=== PATIENT | male | born 1960 | race Two or more races ===

== ENCOUNTER 2017-01-20 22:58 | Emergency (ER) | payer BC ==
--- NOTE | 2017-01-21 01:33 | ED ---
HPI Chest Pain - HPI Summary HPI Summary: Pt here w/ h/o 20 minutes of central chest pain around 22:00 tonight. Noticed while sitting and reading - felt like internal gas pressure. No position made this better or worse. Denies jaw pain, arm pain, back pain, SOB, diaphoresis, nausea/vomiting, fatigue during or after episode. Did not try ASA nor GI remedies. H/o acid reflux in the past - did not feel a burning taste in his mouth like usual. Reports pain dissipated after those 20 minutes and has not returned since. No h/o cardiac issues and no consistent h/o GERD sx. Denies recent illness, cough, ab discomfort. Only change tonight was that he ate summer sausage at a work meeting adn doesn't usually eat food like this. Walks a few miles daily and eats healthy in general. Just had a physical < 6 months ago and was told everything looks good. Fam hx: father by [place] in 50's and brother w/ stents in 50's. Pt denies NSAID use, smoking, drinking ETOH, high stress. - History of Current Complaint Chief Complaint: EDAbdPain Time Seen by Provider: 01/21/17 01:06 Hx Obtained From: Patient Pain Intensity: 0 - Allergy/Home Medications Allergies/Adverse Reactions: Allergies Allergy/AdvReac Type Severity Reaction Status Date / Time No Known Allergies Allergy Verified 01/20/17 23:06 PMH/Surg Hx/FS Hx/Imm Hx Previously Healthy: Yes Endocrine/Hematology History: Denies: Hx Anticoagulant Therapy, Hx Blood Disorders, Hx Diabetes, Hx Thyroid Disease Cardiovascular History: Denies: Hx Congenital Heart Disease, Hx Congestive Heart Failure, Hx Coronary Artery Disease Respiratory History: Denies: Hx Asthma, Hx Chronic Obstructive Pulmonary Disease (COPD), Hx Pneumonia, Hx Pulmonary Embolism GI History: Reports: Hx Gall Bladder Disease - h/o gallstones , Hx Gastroesophageal Reflux Disease - occasional heart burn Denies: Hx Gastrointestinal Bleed Infectious Disease History: No Infectious Disease History: Denies: Traveled Outside the [place] in Last 30 Days - Family History Known Family History: Positive: Cardiac Disease - father - mi in 50's () ; brother stents in 50's - Social History Occupation: Employed Full-time Lives: With Family - Alcohol Use: None Hx Substance Use: No Substance Use Type: Reports: None Hx Tobacco Use: No Smoking Status (MU): Never Smoked Tobacco Review of Systems Constitutional: Negative Negative: Fever, Chills, Fatigue Negative: Sore Throat, Ear Ache, Nasal Discharge Positive: Chest Pain - see HPI Respiratory: Negative Negative: Shortness Of Breath, Cough Gastrointestinal: Other - see HPI Negative: Vomiting, Diarrhea, Nausea Negative: dysuria, discharge, frequency, flank pain Musculoskeletal: Negative Skin: Negative Neurological: Negative Psychological: Normal All Other Systems Reviewed And Are Negative: Yes Physical Exam Triage Information Reviewed: Yes Vital Signs On Initial Exam: Initial Vitals Temp Pulse Resp BP Pulse Ox 98.2 F 64 18 151/80 98 01/20/17 23:02 01/20/17 23:02 01/20/17 23:02 01/20/17 23:02 01/20/17 23:02 Vital Signs Reviewed: Yes Appearance: Positive: Well-Appearing, No Pain Distress, Well-Nourished Skin: Positive: Warm, Dry Head/Face: Positive: Normal Head/Face Inspection Eyes: Positive: Normal, EOMI, Conjunctiva Clear - anicteric sclera ENT: Positive: Hearing grossly normal, Pharynx normal - mucosa moist Neck: Positive: Supple, Nontender Respiratory/Lung Sounds: Positive: Clear to Auscultation, Breath Sounds Present. Negative: Rales, Rhonchi, Wheezes Cardiovascular: Positive: Normal, RRR, Pulses are Symmetrical in both Upper and Lower Extremities, S1, S2. Negative: Murmur, Rub, Leg Edema Left, Leg Edema Right Abdomen Description: Positive: No Organomegaly, Soft, Other: - epigastric region w/ mild TTP; (-) Kumari's sign. Negative: Bruit, Hernia @, McBurney's Point Tenderness, Pulsatile Mass Bowel Sounds: Positive: Present Musculoskeletal: Positive: Normal, Strength/ROM Intact - sternum and chest wall are NTTP Neurological: Positive: Normal, Sensory/Motor Intact, Alert, Oriented to Person Place, Time, CN Intact II-III Psychiatric: Positive: Normal - [place] Coma Scale Coma Scale Total: 15 Diagnostics - Vital Signs Vital Signs Temp Pulse Resp BP Pulse Ox 01/21/17 01:01 98.0 F 61 14 126/70 98 01/21/17 01:00 56 13 97 01/21/17 00:48 60 13 99 01/21/17 00:47 139/74 01/21/17 00:16 97.7 F 62 128/61 98 01/20/17 23:02 98.2 F 64 18 151/80 98 - Laboratory Result Diagrams: 01/21/17 02:10 01/21/17 02:10 Lab Statement: Any lab studies that have been ordered have been reviewed, and results considered in the medical decision making process. Chest Pain Course/Dx - Course Course Of Treatment: Pt presents w/ central chest pressure at 22:00 that lasted for 20 minutes. Unprovoked and no alleviating nor exacerbating factors. Resolved on its own and has not returned. No associated sx. Reports eating summer sausage tonight and doesn't usually eat food like this. H/o GERD (mild and intermittent) as well as gall stones - suspect either of these as he culprit w/ esophageal spasm as ECG, CXR and labs, including 4 hour troponin, are all normal and w/o concern for acute pathology. Pt d/c'd w/ education about GERD and advised to avoid high fat foods. If sx return or new danger s/sx present, return to ED. - Diagnoses Provider Diagnoses: Chest pain of unknown etiology - Provider Notifications Discussed Care Of Patient With: Dr. Mcclendon Discharge - Discharge Plan Condition: Stable Disposition: HOME Patient Education Materials: Chest Pain (ED), Esophageal Spasm (ED), Gastroesophageal Reflux Disease (ED) Referrals: Virgilio Wynn MD [Primary Care Provider] - Additional Instructions: The cause of your chest pain was not definitively identified however acute pathology was ruled out. It is suspected that this could have been the result of foods consumed this evening as rich foods may trigger GERD sx and high fat foods may trigger gallbladder spasm. Reduce fat in your diet and follow-up with PCP this week. Your cardiac tests appear to be normal here today however given family history, you may benefit from further evaluation. *If you develop fever, chills, return of chest pain, shortness of breath, arm pain, back pain, bloody cough, vomiting or diarrhea, return to ED
[2017-01-21 02:22] LABS: Hematocrit 41 % (42-52); Hemoglobin 14.1 g/dl (14.0-18.0); Mean Corpuscular HGB Conc 35 g/dl (31-36); Mean Corpuscular Hemoglobin 31 pg (27-31); Mean Corpuscular Volume 90 fL (80-94); Mean Platelet Volume 10 um3 (7.4-10.4); Red Blood Count 4.53 10^6/ul (4.0-5.4); Red Cell Distribution Width 13 % (10.5-15); White Blood Count 9.9 10^3/ul (3.5-10.8)
[2017-01-21 02:36] LABS: Albumin 4.3 g/dL (3.2-5.2); BUN/Creatinine Ratio 18.6 (8-20); Calcium 9.7 mg/dL (8.6-10.3); EGFR African American 182.1 (>60); EGFR Non-African American 141.6 (>60); Magnesium 2.1 mg/dL (1.9-2.7); Potassium 3.6 mmol/L (3.5-5.0); Total Bilirubin 0.4 mg/dL (0.2-1.0); Total Protein 7.3 g/dL (6.4-8.9)
[2017-01-21 03:09] VITALS: BP 124/68
[2017-01-21 03:41] LABS: TSH (Thyroid Stimulating Horm) 1.47 mcIU/mL (0.34-5.60)
--- NOTE | 2017-01-21 08:10 | RAD ---
HISTORY: Central chest pain COMPARISONS: None VIEWS: 4: Frontal dual-energy and lateral views of the chest. FINDINGS: CARDIOMEDIASTINAL SILHOUETTE: The cardiomediastinal silhouette is normal. KRYS: The krys are normal. PLEURA: The costophrenic angles are sharp. No pleural abnormalities are noted. LUNG PARENCHYMA: There is a 0.8 cm nodular density overlying the left lower lung on frontal projection. ABDOMEN: The upper abdomen is clear. There is no subphrenic gas. BONES AND SOFT TISSUES: No bone or soft tissue abnormalities are noted. OTHER: None. IMPRESSION: 0.8 CM NODULAR DENSITY OF THE LEFT LOWER LUNG. RECOMMEND COMPARISON TO PRIOR IMAGES IF AVAILABLE. IF NO PREVIOUS IMAGING IS AVAILABLE TO DOCUMENT STABILITY OF THIS NODULE, RECOMMEND CONSIDERATION OF FURTHER EVALUATION WITH CONTRAST-ENHANCED CT OF THE CHEST PRELIMINARY FINDINGS WERE DISCUSSED WITH THE PRIMARY PHYSICIANS OFFICE AT APPROXIMATELY 8:07 AM ON JANUARY 21, 2017.
== END 2017-01-21 03:05 | disposition home or self-care (01) ==
LOC: ED 22:58
DX: R07.89 Other chest pain (principal); R00.1 Bradycardia, unspecified; K21.9 Gastro-esophageal reflux disease without esophagitis; K80.20 Calculus of gallbladder without cholecystitis without obstruction
CPT/HCPCS: 36415; 71020; 80053; 83735; 84443; 84484; 85025; 93005; 99283